=== PATIENT | female | born 1985 | race Two or more races ===

== ENCOUNTER → 2017-07-29 | Outpatient (CLI) | payer OTHER ==
[2017-07-29 21:12] LABS: FOLLICLE STIMULATING HORMONE 11.6 mIU/mL; PROGESTERONE 1.7 NG/ML
== END ==
LOC: M WUC 16:52
PROVIDERS: ATTEND Nurse Practitioner Pediatrics
DX: F41.9 Anxiety disorder, unspecified (principal); F32.81 Premenstrual dysphoric disorder

== ENCOUNTER → 2017-07-29 | Outpatient (CLI) | payer OTHER | LOC: M WUC 16:47 | PROVIDERS: ATTEND Family Medicine | DX: N92.6 Irregular menstruation, unspecified (principal); L68.0 Hirsutism; L70.0 Acne vulgaris ==

== ENCOUNTER → 2017-09-21 | Outpatient (CLI) | payer OTHER ==
[2017-09-21 18:31] LABS: HEMATOCRIT 37.2 % (36.0-47.0)
[2017-09-23 09:28] LABS: TOTAL 25(OH) VITAMIN D 28.1 NG/ML (30.0-100.0)
[2017-09-23 09:50] LABS: VITAMIN B12 LEVEL 467 PG/ML (247-911)
[2017-09-23 09:50] LABS: CORTISOL AM 9.3 UG/DL (4.3-22.4)
[2017-09-24 10:36] LABS: PRETREATED FOLATE FOR RBCFOL 14.2 NG/ML; RBC FOLATE 801.6 NG/ML (280-791)
== END ==
LOC: M WUC 09:29
DX: F32.81 Premenstrual dysphoric disorder (principal); F41.9 Anxiety disorder, unspecified
CPT/HCPCS: 83525

== ENCOUNTER → 2018-01-21 | Outpatient (CLI) | payer OTHER ==
[2018-01-21 19:02] LABS: PROGESTERONE 5.3 NG/ML
[2018-01-21 19:02] LABS: TOTAL 25(OH) VITAMIN D 28.8 NG/ML (30.0-100.0)
[2018-01-21 19:03] LABS: FOLLICLE STIMULATING HORMONE 7.3 mIU/mL; LUTEINIZING HORMONE 2.2 mIU/mL
[2018-01-22 08:51] LABS: RUBELLA IgG QUALITATIVE IMMUNE (IMMUNE)
[2018-01-25 00:09] LABS: ESTROGENS TOTAL 80 pg/mL (.)
[2018-01-25 00:09] LABS: ANTI TETANUS ANTIBODY 1.51 IU/mL (<0.10); DEHYDROEPIANDROSTERONE UNCONJ 619 ng/dL (31-701); HERPES ZOSTER, VARICELLA IgG 2462 index (Immune >165); MUMPS VIRUS IgG ANTIBODY 97.9 AU/mL (Immune >10.9); RUBEOLA IgG ANTIBODY 69.1 AU/mL (Immune >29.9); TESTOSTERONE FREE (DIRECT) 6.5 pg/mL (0.0-4.2)
== END ==
LOC: M WUC 14:32
DX: E28.2 Polycystic ovarian syndrome (principal); F32.81 Premenstrual dysphoric disorder; F41.9 Anxiety disorder, unspecified
CPT/HCPCS: 83001

== ENCOUNTER → 2019-02-03 | Outpatient (CLI) | payer OTHER ==
[2019-02-03 17:05] LABS: ALBUMIN 3.5 GM/DL (3.2-5.2); ALT/SGPT 23 U/L (12-78); BILIRUBIN,TOTAL 0.4 MG/DL (0.2-1.0); BLOOD UREA NITROGEN 10 MG/DL (7-18); CALCIUM LEVEL 8.7 MG/DL (8.5-10.1); CARBON DIOXIDE LEVEL 28 MEQ/L (21-32); CHLORIDE LEVEL 108 MEQ/L (98-107); CREATININE FOR GFR 0.79 MG/DL (0.55-1.30); FERRITIN 56 NG/ML (8-252); GLOMERULAR FILTRATION RATE > 60.0 (>60); GLUCOSE, FASTING 74 MG/DL (70-100); IRON (FE) 66 UG/DL (50-170); PERCENT SATURATION 16.7 % (13.2-45.0); POTASSIUM SERUM 4.2 MEQ/L (3.5-5.1); SODIUM LEVEL 141 MEQ/L (136-145); TOTAL IRON BINDING CAPACITY 396 UG/DL (250-450); TOTAL PROTEIN 7.4 GM/DL (6.4-8.2)
[2019-02-03 17:24] LABS: BASO # 0.1 10^3/uL (0.0-0.2); EOS # 0.2 10^3/uL (0.0-0.50); EOS % 1.6 % (0.0-3.0); HEMOGLOBIN 13.1 g/dl (12.0-15.5); LYMPH # 2.8 10^3/uL (1.5-4.5); LYMPH % 29.9 % (24.0-44.0); MEAN CORPUSCULAR HEMOGLOBIN 28.4 pg (27.0-33.0); MEAN CORPUSCULAR HGB CONC 35.4 g/dl (32.0-36.5); MEAN CORPUSCULAR VOLUME 80.1 fl (80.0-96.0); MONO # 0.6 10^3/uL (0.0-0.8); MONO % 6.4 % (0.0-5.0); NEUTROPHILS # 5.6 10^3/uL (1.8-7.7); NEUTROPHILS % 60.5 % (36.0-66.0); PLATELET COUNT, AUTOMATED 413 10^3/uL (150-450); RED BLOOD COUNT 4.62 10^6/uL (4.00-5.40); WHITE BLOOD COUNT 9.3 10^3/uL (4.0-10.0)
== END ==
LOC: M WUC 11:32
PROVIDERS: ATTEND Family Medicine
DX: K92.2 Gastrointestinal hemorrhage, unspecified (principal)

== ENCOUNTER → 2019-02-03 | Outpatient (CLI) | payer OTHER ==
[2019-02-03 17:11] LABS: FOLLICLE STIMULATING HORMONE 8.5 mIU/mL; LUTEINIZING HORMONE 10.9 mIU/mL; PROGESTERONE 22.05 NG/ML; TOTAL 25(OH) VITAMIN D 22.8 NG/ML (30.0-100.0)
[2019-02-08 00:06] LABS: DEHYDROEPIANDROSTERONE UNCONJ 378 ng/dL (31-701); ESTROGENS TOTAL 138 pg/mL (.); INSULIN LEVEL 17.6 uIU/mL (2.6-24.9); TESTOSTERONE FREE (DIRECT) 7.2 pg/mL (0.0-4.2)
== END ==
LOC: M WUC 11:34
PROVIDERS: ATTEND Nurse Practitioner Pediatrics
DX: F41.9 Anxiety disorder, unspecified (principal); F32.81 Premenstrual dysphoric disorder; E28.2 Polycystic ovarian syndrome; K92.2 Gastrointestinal hemorrhage, unspecified

== ENCOUNTER 2019-02-25 10:28 | Day surgery (SDC) | payer OTHER ==
[~2019-02-25] VITALS: Ht 149.9 cm; Wt 84.8 kg
[~2019-02-25 10:28] MED LIST: ALLE180T33 PO; FLUT22IN INH; VENTAER INH
[2019-02-25] MEDS ORDERED: NS 1,000 ML IV ONE (11:15)
--- NOTE | 2019-02-25 12:05 | ROOR ---
Patient Name: Roxana Rosa Procedure Date: 02/25/2019 11:48 AM Date of : 1985 Age: 33 Room: OP02 Gender: Female Note Status: Finalized Procedure: Colonoscopy Indications: Hematochezia Providers: Zeferino Tuttle DO Referring MD: Marisela DOHERTY DO Requesting Provider: Medicines: Propofol per Anesthesia Complications: No immediate complications. Procedure: Pre-Anesthesia Assessment: - Prior to the procedure, a History and Physical was performed, and patient medications and allergies were reviewed. The patient is competent. The risks and benefits of the procedure and the sedation options and risks were discussed with the patient. All questions were answered and informed consent was obtained. Patient identification and proposed procedure were verified by the physician, the nurse, the anesthesiologist and the materials technician in the endoscopy suite. Mental Status Examination: alert and oriented. Airway Examination: normal oropharyngeal airway and neck mobility. Respiratory Examination: clear to auscultation. CV Examination: normal. Prophylactic Antibiotics: The patient does not require prophylactic antibiotics. Prior Anticoagulants: The patient has taken no previous anticoagulant or antiplatelet agents. ASA Grade Assessment: II - A patient with mild systemic disease. After reviewing the risks and benefits, the patient was deemed in satisfactory condition to undergo the procedure. The anesthesia plan was to use monitored anesthesia care (MAC). Immediately prior to administration of medications, the patient was re-assessed for adequacy to receive sedatives. The heart rate, respiratory rate, oxygen saturations, blood pressure, adequacy of pulmonary ventilation, and response to care were monitored throughout the procedure. The physical status of the patient was re-assessed after the procedure. The Colonoscope was introduced through the anus and advanced to the cecum, identified by appendiceal orifice and ileocecal valve. The colonoscopy was performed without difficulty. The patient tolerated the procedure well. Findings: Hemorrhoids were found on perianal exam. The exam was otherwise without abnormality on direct and retroflexion views. Impression: - Hemorrhoids found on perianal exam. - The examination was otherwise normal on direct and retroflexion views. - No specimens collected. Recommendation: - Patient has a contact number available for emergencies. The signs and symptoms of potential delayed complications were discussed with the patient. Return to normal activities tomorrow. Written discharge instructions were provided to the patient. - Repeat colonoscopy at age 49 for screening purposes. - Return to my office PRN. Zeferino Tuttle DO 02/25/2019 12:04:48 PM Electronically signed by Zeferino Tuttle DO Number of Addenda: 0 Note Initiated On: 02/25/2019 11:48 AM Estimated Blood Loss: Estimated blood loss: none.
[2019-02-25 12:30] VITALS: BP 136/93
[2019-02-25] MEDS ORDERED: LIDOCAINE 2% INJ 100 MG/5 ML SDV (FOR ANES.) As Ordered ONE (13:08)
[2019-02-25] MEDS ORDERED: PROPOFOL 500 MG/50 ML VIAL As Ordered ONE (13:08)
== END 2019-02-25 12:47 | disposition home or self-care (01) ==
LOC: M OPP 10:28
PROVIDERS: ATTEND Surgery
DX: K64.9 Unspecified hemorrhoids (principal); K92.1 Melena; F17.210 Nicotine dependence, cigarettes, uncomplicated

== ENCOUNTER → 2020-08-10 | Outpatient (CLI) | payer OTHER ==
[2020-08-10 11:37] LABS: BASO # 0.1 10^3/uL (0.0-0.2); EOS # 0.2 10^3/uL (0.0-0.5); EOS % 1.5 % (0.0-3.0); HEMATOCRIT 38.8 % (36.0-47.0); HEMOGLOBIN 13.2 g/dl (12.0-15.5); LYMPH # 2.8 10^3/uL (1.5-5.0); LYMPH % 26.3 % (24.0-44.0); MEAN CORPUSCULAR VOLUME 79.3 fl (80.0-96.0); MONO # 0.6 10^3/uL (0.0-0.8); MONO % 5.3 % (0.0-5.0); NEUTROPHILS # 6.9 10^3/uL (1.5-8.5); NEUTROPHILS % 65.2 % (36.0-66.0); PLATELET COUNT, AUTOMATED 467 10^3/uL (150-450); RED BLOOD COUNT 4.89 10^6/uL (4.00-5.40); WHITE BLOOD COUNT 10.6 10^3/uL (4.0-10.0)
[2020-08-10 12:08] LABS: ALBUMIN 3.7 GM/DL (3.2-5.2); ALT/SGPT 26 U/L (12-78); BILIRUBIN,TOTAL 0.4 MG/DL (0.2-1.0); BLOOD UREA NITROGEN 11 MG/DL (7-18); C REACTIVE PROTEIN QUANTITATIV 1.08 MG/DL (0.00-0.30); CARBON DIOXIDE LEVEL 27 MEQ/L (21-32); CHLORIDE LEVEL 108 MEQ/L (98-107); GLOMERULAR FILTRATION RATE > 60.0 (>60); GLUCOSE, FASTING 88 MG/DL (70-100); IMMUNOGLOBULIN G 1620 MG/DL (681-1648); IRON (FE) 58 UG/DL (50-170); PERCENT SATURATION 14.9 % (13.2-45.0); POTASSIUM SERUM 4.8 MEQ/L (3.5-5.1); SODIUM LEVEL 140 MEQ/L (136-145); TOTAL IRON BINDING CAPACITY 388 UG/DL (250-450); TOTAL PROTEIN 7.5 GM/DL (6.4-8.2)
[2020-08-10 12:09] LABS: ERYTHROCYTE SEDIMENTATION RATE 1 mm/hr (0-20)
[2020-08-11 09:47] LABS: TOTAL 25(OH) VITAMIN D 23.3 NG/ML (30.0-100.0)
== END ==
LOC: M WUC 08:39
PROVIDERS: ATTEND Nurse Practitioner Pediatrics
DX: F41.9 Anxiety disorder, unspecified (principal); F32.81 Premenstrual dysphoric disorder; E28.2 Polycystic ovarian syndrome

== ENCOUNTER → 2020-11-03 | Outpatient (CLI) | payer OTHER ==
[2020-11-03 09:56] LABS: BASO # 0.1 10^3/uL (0.0-0.2); BASO % 1.1 % (0.0-1.0); EOS # 0.2 10^3/uL (0.0-0.5); EOS % 1.7 % (0.0-3.0); HEMATOCRIT 39.7 % (36.0-47.0); HEMOGLOBIN 13.7 g/dl (12.0-15.5); LYMPH # 2.6 10^3/uL (1.5-5.0); LYMPH % 26.4 % (24.0-44.0); MEAN CORPUSCULAR HEMOGLOBIN 27.5 pg (27.0-33.0); MEAN CORPUSCULAR HGB CONC 34.5 g/dl (32.0-36.5); MEAN CORPUSCULAR VOLUME 79.7 fl (80.0-96.0); MONO # 0.5 10^3/uL (0.0-0.8); MONO % 5.5 % (2.0-8.0); NEUTROPHILS # 6.3 10^3/uL (1.5-8.5); NEUTROPHILS % 64.6 % (36.0-66.0); PLATELET COUNT, AUTOMATED 451 10^3/uL (150-450); RED BLOOD COUNT 4.98 10^6/uL (4.00-5.40); WHITE BLOOD COUNT 9.7 10^3/uL (4.0-10.0)
[2020-11-03 10:38] LABS: HEMOGLOBIN A1c 5.1 %
[2020-11-03 10:41] LABS: ALBUMIN 3.7 GM/DL (3.2-5.2); ALT/SGPT 21 U/L (12-78); BILIRUBIN,TOTAL 0.4 MG/DL (0.2-1.0); BLOOD UREA NITROGEN 9 MG/DL (7-18); CARBON DIOXIDE LEVEL 26 MEQ/L (21-32); CHLORIDE LEVEL 108 MEQ/L (98-107); CHOLESTEROL LEVEL 186 MG/DL (<200); CHOLESTEROL RISK RATIO 4.894 (<5); CREATININE FOR GFR 0.73 MG/DL (0.55-1.30); GLOMERULAR FILTRATION RATE > 60.0 (>60); GLUCOSE, FASTING 95 MG/DL (70-100); HDL CHOLESTEROL 38 MG/DL (>40); LDL CHOLESTEROL 131 MG/DL (<100); NON-HDL-C 148 MG/DL; POTASSIUM SERUM 4.6 MEQ/L (3.5-5.1); SODIUM LEVEL 140 MEQ/L (136-145); TOTAL 25(OH) VITAMIN D 18.9 NG/ML (30.0-100.0); TOTAL PROTEIN 7.6 GM/DL (6.4-8.2); TRIGLYCERIDES LEVEL 87 MG/DL (<150)
== END ==
LOC: M WUC 08:36
PROVIDERS: ATTEND Nurse Practitioner Family
DX: Z00.01 Encounter for general adult medical examination with abnormal findings (principal); Z79.899 Other long term (current) drug therapy